=== PATIENT | female | born 1945 | race Caucasian/White ===

== ENCOUNTER 2017-03-16 07:35 | Day surgery (SDC) | payer MEDICARE, OTHER ==
[2017-03-16] VITALS (10 sets, daily range): BP systolic 130–166; BP diastolic 42–82; PULSE 58–83; TEMP 97.1–98.2
[~2017-03-16] VITALS: Ht 147.3 cm; Wt 74.0 kg
[2017-03-16] MEDS ORDERED: NORMODYNE200 MG PO (08:58)
[2017-03-16] MEDS ORDERED: LANTUS SOLOS100 U/ML SQ (08:58)
[2017-03-16] MEDS ORDERED: GLUCOTROL XL10 MG PO (08:59)
[2017-03-16] MEDS ORDERED: KLONOPIN WAFER0.5 MG PO (09:00)
[2017-03-16] MEDS ORDERED: ZOCOR 20MG20 MG PO (09:00)
[2017-03-16] MEDS ORDERED: PRECOSE100 M1 PO (09:01)
[2017-03-16] MEDS ORDERED: PROCARDIA XL90 MG PO (09:02)
[2017-03-16] MEDS ORDERED: LASIX 40MG TABL40 MG PO (09:02)
[2017-03-16] MEDS ORDERED: ASPI325T6 PO (09:03)
[2017-03-16] MEDS ORDERED: MAG-OX 400400 MG/TAB PO (09:04)
[2017-03-16] MEDS ORDERED: FISH OIL 1000MG1 CAP PO (09:04)
[2017-03-16] MEDS ORDERED: MULTI VITAMINS1 TAB PO (09:05)
[2017-03-16] MEDS ORDERED: PRILOSEC 20MG20 MG PO (09:05)
[2017-03-16] MEDS ORDERED: NORMODYNE300 MG PO (09:07)
[2017-03-17 02:56] VITALS: BP 152/44; PULSE 72; TEMP 97.6
[2017-03-17 04:41] VITALS: BP 147/45; PULSE 68; TEMP 97.7
[2017-03-17 09:26] VITALS: BP 140/55; PULSE 62; TEMP 97.5
== END 2017-03-17 10:57 | disposition home or self-care (01) ==
LOC: SDCO 07:35 → SURG 11:15 → SDCO 03-17 10:57
DX: K80.10 Calculus of gallbladder with chronic cholecystitis without obstruction (principal); I73.9 Peripheral vascular disease, unspecified; E78.5 Hyperlipidemia, unspecified; I12.9 Hypertensive chronic kidney disease with stage 1 through stage 4 chronic kidney disease, or unspecified chronic kidney disease; E11.22 Type 2 diabetes mellitus with diabetic chronic kidney disease; N18.9 Chronic kidney disease, unspecified; H35.039 Hypertensive retinopathy, unspecified eye; Z79.4 Long term (current) use of insulin
CPT/HCPCS: OP; J0360; J1100; J1885; J2270; J2405; J2550; J2704; J2710; J7030